=== PATIENT | female | born 1985 | race Caucasian/White ===

== ENCOUNTER 2017-11-15 03:16 | Inpatient (IN) | payer OTHER ==
[2017-11-15] MEDS ORDERED: MISOPROSTOL 200 MCG TAB PR PRN (03:33)
[2017-11-15] MEDS ORDERED: OXYTOCIN/RINGERS LACTATE 1,000 ML IV PRN (03:33)
[2017-11-15] MEDS ORDERED: EPSOM SALT 454 GM TP PRN (03:33)
[2017-11-15] MEDS ORDERED: TERBUTALINE SULFATE 1 MG/ML VIAL IV PRN (03:33)
[2017-11-15] MEDS ORDERED: LIDOCAINE 1% 300 MG/30 ML SDV SC PRN (03:33)
[2017-11-15] MEDS ORDERED: OLIVE OIL 118 ML BTL MISC PRN (03:33)
[2017-11-15] MEDS ORDERED: IBUPROFEN 600 MG TAB PO PRN (03:33)
[2017-11-15] MEDS ORDERED: LR 1,000 ML IV PRN (03:33)
[2017-11-15 03:44] LABS: PLATELET COUNT 168 10^3/uL (150-400)
[2017-11-15] MEDS ORDERED: fentaNYL 200 MCG, BUPIVACAINE 0.5% 20 ML in NS 100 ML EP SCH (04:00)
[2017-11-15] MEDS ORDERED: BUPIVACAINE 0.25% 30 ML SDV ONE (04:06)
[2017-11-15] MEDS ORDERED: fentaNYL 100 MCG/2 ML INJ ONE (04:06)
--- NOTE | 2017-11-15 04:19 | PDGENHP ---
History and Physical - Chief Complaint Active labor - History of Present Illness 31 yo at 40w3d called this evening with new painful ctx's that began around 0200 this morning. History of rapid labor and delivery with G1. Had been discussing IOL due to her history - but elected to wait for spontaneous labor. GBS negative. Otherwise uncomplicated - Transferred care to us at 33 wks from office in [place] bc she lives in [place]. 3yo son Ozzy was born at [facility] - 5 hrs from first painful ctx to baby. He was [id number] and she did have time for an epidural. Two other EAB's prior to Ozzy in 09 and 11 otherwise. She was found to be anemic at 33 wks and started on iron. Labs: B Pos Ab screen neg RPR NR HBSAg NR Rubella IMMUNE Declined aneuploidy and carrier GC/C neg Glucola 106 Varicella and Parvo Immune History Information - Allergies/Home Medication List Allergies/Adverse Reactions: No Known Allergies Allergy (Unverified 11/15/17 03:32) I have personally reviewed and updated: family history, medical history, social history, surgical history - Past Medical History no pertinent PMH - Surgical History Reports: no pertinent surgical hx - Family History Positive for: non-pertinent Additional family history: Hyperthyroidism Review of Systems Review of Systems: ROS: 10pt was reviewed & negative except for what was stated in HPI & below Physical Exam Physical Exam: In labor, in pain. Gravid belly, soft between ctx's. Baby cephalic by Cody, 8lbs. Lab Data & Imaging Review 11/15/17 03:35 WBC 8.96 10^3/uL (3.80-9.50) 11/15/17 03:35 RBC 3.89 10^6/uL (4.18-5.33) L 11/15/17 03:35 Hgb 12.4 g/dL (12.6-16.3) L 11/15/17 03:35 Hct 35.2 % (38.0-47.0) L 11/15/17 03:35 MCV 90.5 fL (81.5-99.8) 11/15/17 03:35 MCH 31.9 pg (27.9-34.1) 11/15/17 03:35 MCHC 35.2 g/dL (32.4-36.7) 11/15/17 03:35 RDW 12.9 % (11.5-15.2) 11/15/17 03:35 Plt Count 168 10^3/uL (150-400) 11/15/17 03:35 MPV 11.5 fL (8.7-11.7) 11/15/17 03:35 Neut % (Auto) 59.0 % (39.3-74.2) 11/15/17 03:35 Lymph % (Auto) 27.2 % (15.0-45.0) 11/15/17 03:35 Haakon % (Auto) 10.8 % (4.5-13.0) 11/15/17 03:35 Eos % (Auto) 2.1 % (0.6-7.6) 11/15/17 03:35 Baso % (Auto) 0.3 % (0.3-1.7) 11/15/17 03:35 Nucleat RBC Rel Count 0.0 % (0.0-0.2) 11/15/17 03:35 Absolute Neuts (auto) 5.28 10^3/uL (1.70-6.50) 11/15/17 03:35 Absolute Lymphs (auto) 2.44 10^3/uL (1.00-3.00) 11/15/17 03:35 Absolute Monos (auto) 0.97 10^3/uL (0.30-0.80) H 11/15/17 03:35 Absolute Eos (auto) 0.19 10^3/uL (0.03-0.40) 11/15/17 03:35 Absolute Basos (auto) 0.03 10^3/uL (0.02-0.10) 11/15/17 03:35 Absolute Nucleated RBC 0.00 10^3/uL (0-0.01) 11/15/17 03:35 Immature Gran % 0.6 % (0.0-1.1) 11/15/17 03:35 Immature Gran # 0.05 10^3/uL (0.00-0.10) 11/15/17 03:35 Assessment & Plan Assessment: 31 yo presents at 40w3d in active labor. - Routine orders, GBS negative. - Would like epidural, anesthesia on their way. - Will need iron supps PP.
[2017-11-15] MEDS ORDERED: PHENYLEPHRINE HCL 100 MCG/ML SYR ONE (04:32)
[2017-11-15] MEDS ORDERED: PHENYLEPHRINE HCL 100 MCG/ML SYR IVP PRN (04:49)
[2017-11-15] MEDS ORDERED: ONDANSETRON 4 MG/2 ML VIAL IVP PRN (04:49)
--- NOTE | 2017-11-15 04:49 | PDANEPAE ---
ANE Review of Systems Review of Systems: ANE Patient History - Allergies Allergies/Adverse Reactions: No Known Allergies Allergy (Unverified 11/15/17 03:32) ANE Labs/Vital Signs - Labs Result Diagrams: 11/15/17 03:35 ANE Physical Exam - Airway Neck exam: FROM Mallampati Score: Class 1 Mouth exam: normal dental/mouth exam - Pulmonary Pulmonary: no respiratory distress - Cardiovascular Cardiovascular: regular rate and rhythym - ASA Status ASA Status: II ANE Anesthesia Plan Anesthesia Plan: epidural Urgent/Emergent Case: Rafita learyal completed preop but documented later for safe timely pt care (paged [email or web address], arrived 03:58)
[2017-11-15] MEDS ORDERED: fentaNYL 2MCG/ML/BUP 0.1% RTU 100 ML EP SCH ×2 (05:00)
[2017-11-15] MEDS ORDERED: LR 500 ML IV SCH (05:00)
[2017-11-15] MEDS ORDERED: SIMETHICONE 80 MG TAB CHEW PO PRN (05:33)
[2017-11-15] MEDS ORDERED: oxyCODONE IR 5 MG TAB PO PRN (05:33)
[2017-11-15] MEDS ORDERED: HYDROCORTISONE 0.5% CREAM TP PRN (05:33)
--- NOTE | 2017-11-15 05:38 | OBDEL ---
Info Type: Vaginal Presentation at Delivery: Vertex L&D Analgesia/Anesthesia Type: Epidural GBS+: No - Hospital Course Intrapartum: Presented at 8cm, intact. Got epidural. Once comfortable with epidural was found to be complete with bulging bag at introitus. AROM with clear fluid. Indications for Delivery: Spontaneous Labor Vaginal Delivery - Delivery Provider Delivery Physician/CNM: Pato Tejada - Labor and Delivery Onset of Contractions Date: 11/15/17 Onset of Contractions Time: 02:00 Onset of Contractions Type: Spontaneous Rupture of Membranes Date: 11/15/17 Rupture of Membranes Time: 04:50 Rupture of Membranes Type: Artificial Amniotic Fluid Color: Clear Dilation Complete Date: 11/15/17 Dilation Complete Time: 04:50 Placenta Delivery Date: 11/15/17 Placenta Delivery Time: 05:11 Total Hours of Labor: 3 Non-surgical Procedures: Amniotomy Laceration: 2nd Degree, Other (Specify) (2nd degree perineal, sub-clitoral, right periurethral) Repair: 3-0, 4-0, Vicryl Vaginal Sponge Count Correct: Yes Vaginal Needle Count Correct: Yes Vaginal Sweep Performed: Yes EBL: 200 Delivery Events: Nuchal Cord, Other (Specify) (Compound presentation with baby' s left hand by cheek) Ernul Data Saini Delivery Date: 11/15/17 Delivery Time: 05:03 Sex of : Male Score (1 Min): 8 Score (5 Min): 9 Shoulder Dystocia Time Head Delivered: 05:03 Time Body Delivered: 05:03 ICD10 Worksheet Patient Problems: Problems Problem Status Onset H/O rapid labor Acute Rapid second stage of labor Acute (spontaneous vaginal delivery) Acute - ICD10 Problem Qualifiers (1) (spontaneous vaginal delivery) (2) H/O rapid labor (3) Rapid second stage of labor
--- NOTE | 2017-11-15 10:40 | POSTANESTH ---
Post Anesthetic Evaluation Cardiovascular Status: Similar to Pre-Op Cond Respiratory Status: Similar to Pre-op Cond. Level of Consciousness/Mental Status: Alert and Oriented Pain Control: Adequate, Prn Tx Ordered Nausea/Vomiting Control: Adequate, Prn Tx Ordered Complications Possibly Related to Anesthesia: None Noted
--- NOTE | 2017-11-15 12:17 | OBPP ---
Progress Note Assessment/Plan: Assessment: 31 y/o PPD #1 s/p doing well Plan: Routine PPC. support, may wish to d/c home tomorrow. 11/15/17 12:16 Subjective/ Course: 11/15/17 12:14 Pt is doing well this am. She has good pain control with Ibuprofen. She is ambulating, voiding without difficulty and has min lochia. Breast feeding is going well and baby is doing well. Objective: 11/15/17 03:35 Patient ABO/Rh B POSITIVE 11/15/17 03:35 Temp Pulse Resp BP Pulse Ox 36.2 C 66 20 99/60 L 11/15/17 10:00 11/15/17 10:00 11/15/17 10:00 11/15/17 10:00 Uterine Position/Fundal Height: Umbilicus -2 Uterine Tone: Firm Physical Exam - Physical Exam General Appearance: alert, no apparent distress Neck: non-tender, full range of motion, supple Respiratory: chest non-tender, lungs clear, normal breath sounds Cardiac/Chest: regular rate, rhythm Abdomen: normal bowel sounds Extremities: swelling (no), Chepe's sign (neg)
[2017-11-15] MEDS: IBUPROFEN 600 MG TAB PO SCH ×2 (13:27→19:20)
[2017-11-15] MEDS: ACETAMINOPHEN 325 MG TAB PO SCH ×4 (14:59→23:48)
[2017-11-15] MEDS: IRON POLYSAC/IRON HEME 28 MG TAB PO SCH (16:04)
[2017-11-15] MEDS: DOCUSATE SODIUM 100 MG CAP PO PRN (19:24)
[2017-11-16] MEDS: IBUPROFEN 600 MG TAB PO SCH ×2 (02:31→08:58)
[2017-11-16] MEDS: ACETAMINOPHEN 325 MG TAB PO SCH (05:37)
[2017-11-16 07:44] VITALS: BP 96/48
[2017-11-16] MEDS: DOCUSATE SODIUM 100 MG CAP PO PRN (08:58)
[2017-11-16] MEDS: IRON POLYSAC/IRON HEME 28 MG TAB PO SCH (08:58)
--- NOTE | 2017-11-16 09:39 | OBPP ---
Progress Note Assessment/Plan: Assessment: PPD 1 s/p mild anemia Plan: d/c home, iron daily 11/16/17 09:37 Subjective/ Course: 11/15/17 12:14 Pt is doing well this am. She has good pain control with Ibuprofen. She is ambulating, voiding without difficulty and has min lochia. Breast feeding is going well and baby is doing well. 11/16/17 09:38 Pt doing well. baby has been latching well - seeing this am. bld has lessened. urinating fine. Mood ok at this point. daughter has come up to visit. ready for d/c Objective: 11/16/17 05:30 Patient ABO/Rh B POSITIVE 11/15/17 03:35 Temp Pulse Resp BP Pulse Ox 36.4 C 71 16 96/48 L 94 11/16/17 07:30 11/16/17 07:30 11/16/17 07:30 11/16/17 07:30 11/16/17 07:30 Uterine Position/Fundal Height: Umbilicus -1 Uterine Tone: Firm Physical Exam - Physical Exam Abdomen: non-tender, soft, other (FF at umb -1) Extremities: non-tender, pedal edema (minimal) Skin: normal color, warm/dry Neuro/Psych: alert, normal mood/affect
--- NOTE | 2017-11-16 09:42 | OBGCSDC ---
General Delivery Information - General Info : 4 Para: 2 Abortions: 2 Type: Vaginal L&D Analgesia/Anesthesia Type: Epidural, Nitrous Admission Date: 11/15/17 Labs: Patient ABO/Rh B POSITIVE 11/15/17 03:35 Hct 33.2 % (38.0-47.0) L 11/16/17 05:30 - Hospital Course Intrapartum: Presented at 8cm, intact. Got epidural. Once comfortable with epidural was found to be complete with bulging bag at introitus. AROM with clear fluid. : 11/15/17 12:14 Pt is doing well this am. She has good pain control with Ibuprofen. She is ambulating, voiding without difficulty and has min lochia. Breast feeding is going well and baby is doing well. 11/16/17 09:38 Pt doing well. baby has been latching well - seeing this am. bld has lessened. urinating fine. Mood ok at this point. daughter has come up to visit. ready for d/c Vaginal - Delivery Provider Delivery Physician/CNM: Pato Ward - Diagnosis Labor: Spontaneous Rupture of Membranes Type: Artificial Amniotic Fluid Color: Clear Laceration: 2nd Degree, Other (Specify) (2nd degree perineal, sub-clitoral, right periurethral) Repair: 3-0, 4-0, Vicryl Delivery Events: Nuchal Cord, Other (Specify) (Compound presentation with baby' s left hand by cheek) - Procedures Non-surgical Procedures: Amniotomy - Delivery Non-surgical Procedures: Amniotomy EBL: 200 [place] Data BENJAMIN: 11/12/17 Gestational Age: 40 week(s) and 4 day(s) Saini Delivery Date: 11/15/17 Delivery Time: 05:02 Sex of Infant: Male [place] Weight (gm): 3796 g Score (1 Min): 8 Score (5 Min): 9 Discharge Information - Discharge Information Condition: Good Instruction/Follow Up: See Instruction Sheet, Four Weeks (with therapist), Six Weeks (with Ricardo Ward)
== END 2017-11-16 10:41 | disposition home or self-care (01) | DRG 775 ==
LOC: FLD 03:16 → FOB 09:35
PROVIDERS: ADMIT Obstetrics & Gynecology; ATTEND Obstetrics & Gynecology
PROC: 10907ZC Drainage of Amniotic Fluid, Therapeutic from Products of Conception, Via Natural or Artificial Opening (ICD-10-PCS; principal; 2017-11-15)
PROC: 0KQM0ZZ Repair Perineum Muscle, Open Approach (ICD-10-PCS; principal; 2017-11-15)
PROC: 10E0XZZ Delivery of Products of Conception, External Approach (ICD-10-PCS; principal; 2017-11-15)
DX: O99.013 Anemia complicating pregnancy, third trimester (principal); O70.1 Second degree perineal laceration during delivery; O69.9XX0 Labor and delivery complicated by cord complication, unspecified, not applicable or unspecified; O32.6XX0 Maternal care for compound presentation, not applicable or unspecified; Z3A.40 40 weeks gestation of pregnancy; Z37.0 Single live birth; D64.9 Anemia, unspecified
CPT/HCPCS: J2370; J2590; J3010